=== PATIENT | female | born 1945 | race Caucasian/White ===

== ENCOUNTER → 2019-10-14 14:15 | Outpatient (CLI) | payer MEDICARE, SELFPAY ==
[2016-12-29 17:27] VITALS: BMI 30.2
--- NOTE | 2019-10-14 14:16 | RAD_ITS ---
STUDY: X-RAY - RIGHT SHOULDER REASON FOR EXAM: Female, 74 years old. shoulder pain TECHNIQUE: 4 view(s) of the shoulder. COMPARISON: None. FINDINGS: There is moderate degenerative arthrosis of the glenohumeral articulation. There is degenerative arthrosis of the acromioclavicular joint without inferior osseous spur formation. Normal acromion. There is demineralization of the humerus and visualized osseous structures. Cephalad migration of the humeral head may indicate chronic rotator cuff disease. The soft tissue structures are unremarkable. There is no demonstrated fracture. Normal visualized pulmonary apex. RAD/Shoulder min 2 Views IMPRESSION: Diffuse osteopenia along with degenerative disease as described. Possible chronic rotator cuff disease. No acute fracture or subluxation. Electronically Signed: Tameka Durand MD at 0:52 EDT , Service support ,
--- NOTE | 2019-10-14 14:16 | RAD_ITS ---
STUDY: X-RAY - CERVICAL SPINE REASON FOR EXAM: Female, 74 years old. neck pain TECHNIQUE: 5 view(s) of the cervical spine were obtained. COMPARISON: None FINDINGS: There are degenerative changes of the anterior atlantoaxial articulation. Normal odontoid process. There is straightening of the normal cervical lordosis. There is retrolisthesis of C4 in relation to C3 and C5 (3 mm). There is multi-level endplate spondylosis. There is diffuse osteopenia. There is narrowing of disc spaces from C4-C5 to C6-C7. There is multi-level osseous foraminal stenosis. The soft tissue structures are unremarkable. There is no demonstrated fracture of the cervical spine. RAD/Cerv Spine 4 or 5 Views IMPRESSION: Retrolisthesis of C4 in relation to C3 and C5 as described most likely related to advanced degenerative disease with multilevel neural foraminal encroachment. If indicated, stability can be assessed with flexion extension views. No acute fracture. Electronically Signed: Tameka Durand MD at 0:50 EDT , Service support ,
== END ==
PROVIDERS: PCP Internal Medicine; Referring Provider Physician Assistant; Visit Provider Physician Assistant
DX: M25.511 Pain in right shoulder (principal); M79.601 Pain in right arm; M54.2 Cervicalgia
CPT/HCPCS: 72050; 73030

== ENCOUNTER → 2020-04-09 12:35 | Outpatient (CLI) | payer MEDICARE, SELFPAY ==
[2019-10-14 14:18] VITALS: BMI 30.2
--- NOTE | 2020-04-09 12:38 | MRI_ITS ---
STUDY: MRI BRAIN WITH AND WITHOUT CONTRAST (ATTENTION INTERNAL AUDITORY CANALS - I.A.C.''s) REASON FOR EXAM: Female, 74 years old. dizziness, attn iac, frequent falls, imbalance TECHNIQUE: Standardized multiplanar fat and water weighted pulse sequences were obtained. IV [id number] was administered for the contrast portion of the examination. COMPARISON: CT 01/19/1960 FINDINGS: Normal bilateral temporal bones. Normal bilateral internal auditory canals. There is no demonstrated intracanalicular or cisternal vestibular schwannoma (acoustic neuroma). There is no enhancement of the bilateral VIIth or VIIIth cranial nerves. Normal bilateral cochlea, vestibules and semicircular canals. There is moderate cerebral atrophy with widening of the extra-axial spaces and ventricular dilatation. There are multiple white matter hyperintensities, distributed throughout the deep white matter tracts of the cerebral hemispheres, consistent with moderate chronic white matter ischemic changes. There is no evidence for recent intracranial ischemia or other cause of cytotoxic edema on diffusion weighted imaging (DWI). Normal bilateral basal ganglia. Normal thalami. Normal flow voids within the major intracranial circulation suggesting patency by spin echo criteria. Normal venous enhancement. There is no enhancing intra-axial or extra-axial abnormality. There is no extra-axial fluid accumulation. Normal sella turcica, pituitary gland, infundibular stalk, optic chiasm and hypothalamus. Normal tectal plate and pineal gland. Normal midbrain, iman and medulla. Normal cerebellum. Normal basal cisterns. No demonstrated orbital abnormality, within the constraints of a routine brain study. Normal visualized paranasal sinuses. Normal calvarium and skull base. Normal visualized soft tissue structures. Normal visualized upper cervical spine. MRI/Brain W/WO Contrast IMPRESSION: Involutional changes of the brain, as described above. No MR evidence of vestibular schwannoma (acoustic neuroma) stenosis. Electronically Signed: Chandan Emmanuel MD at 15:03 EDT Tel , Service support ,
[2020-04-09 13:30] LABS: CREATININE FINGERSTICK 0.8 mg/dL (0.55-1.02); EGFR FINGERSTICK > 60.0000 mL/min (>60)
== END ==
PROVIDERS: PCP Internal Medicine; Referring Provider Otolaryngology; Visit Provider Otolaryngology
DX: R42 Dizziness and giddiness (principal)
CPT/HCPCS: 70553; A9575